=== PATIENT | male | born 1960 | race Caucasian/White ===

== ENCOUNTER 2016-07-22 12:37 | Outpatient (CLI) | payer BC | END 2016-07-22 12:38 | disposition home or self-care (01) | DX: R73.01 Impaired fasting glucose (principal); N18.2 Chronic kidney disease, stage 2 (mild); R35.1 Nocturia ==

== ENCOUNTER 2016-09-15 09:58 | Outpatient (CLI) | payer BC | END 2016-09-15 09:59 | disposition home or self-care (01) | DX: E78.5 Hyperlipidemia, unspecified (principal); R73.9 Hyperglycemia, unspecified ==

== ENCOUNTER 2017-01-05 10:33 | Outpatient (CLI) | payer BC ==
[2017-01-05 19:29] LABS: BASOPHILS # (AUTO) 0.1 10^3/uL (0.0-0.1); BASOPHILS % (AUTO) 0.4 %; EOSINOPHILS % (AUTO) 0.4 %; HCT - HEMATOCRIT 49.4 % (42.0-52.0); HGB - HEMOGLOBIN 16.4 g/dL (14.0-18.0); LYMPHOCYTES # (AUTO) 3.6 10^3/uL (1.5-3.5); LYMPHOCYTES % (AUTO) 31.1 %; MEAN CORPUSCULAR HEMOGLOBIN 29.9 pg (27.0-31.0); MEAN CORPUSCULAR HGB CONC 33.2 g/dL (32.0-36.0); MEAN CORPUSCULAR VOLUME 90.2 fL (80.0-94.0); MEAN PLATELET VOLUME 8.2 fL (7.4-11.4); MONOCYTES # (AUTO) 0.7 10^3/uL (0.0-1.0); MONOCYTES % (AUTO) 6.5 %; NEUTROPHILS % (AUTO) 61.6 %; NUCLEATED RED BLOOD CELLS AUTO 0.1 /100WBC; RED BLOOD COUNT 5.47 10^6/uL (4.70-6.10); RED CELL DISTRIBUTION WIDTH 13.2 % (12.0-15.0); UNCORRECTED WHITE BLOOD COUNT 11.4 x10^3/uL; WHITE BLOOD COUNT 11.4 x10^3/uL (4.8-10.8)
[2017-01-05 19:41] LABS: AMYLASE 70 U/L (28-100); BUN - BLOOD UREA NITROGEN 13 mg/dL (6-20); CALCIUM 9.1 mg/dL (8.5-10.3); CARBON DIOXIDE - CO2 24 mmol/L (21-32); CHLORIDE 106 mmol/L (101-111); CHOL/HDL RATIO 2.7 (<5.0); CHOLESTEROL 106 mg/dL; GFR - MDRD 78 (>89); GLUCOSE 98 mg/dL (70-100); HDL CHOLESTEROL 40 mg/dL; LIPASE 32 U/L (22-51); POTASSIUM 3.7 mmol/L (3.5-5.0); SODIUM 138 mmol/L (135-145)
[2017-01-05 19:42] LABS: LDL/HDL RATIO 1.3 (<3.6); TRIGLYCERIDES 65 mg/dL; VLDL CHOLESTEROL 13 mg/dL
[2017-01-05 20:31] LABS: HEMOGLOBIN A1C 0.67 g/dL
== END 2017-01-05 10:34 | disposition home or self-care (01) ==
LOC: LAB.F 10:33
PROVIDERS: ATTEND Physician Assistant
DX: R73.09 Other abnormal glucose (principal); E78.5 Hyperlipidemia, unspecified; R19.7 Diarrhea, unspecified
CPT/HCPCS: 36415; 80048; 80061; 82150; 83036; 83690; 85025

== ENCOUNTER 2017-07-27 07:11 | Outpatient (CLI) | payer OTHER ==
[2017-07-27 11:29] LABS: ALBUMIN 4.2 g/dL (3.2-5.5); ALBUMIN/GLOBULIN RATIO 1.4 (1.0-2.2); ALKALINE PHOSPHATASE 58 IU/L (42-121); ALT ALANINE AMINOTRANSFERASE 41 IU/L (10-60); AST ASPARTATE AMINOTRANSFERASE 32 IU/L (10-42); BILIRUBIN,TOTAL 1.2 mg/dL (0.2-1.0); BUN - BLOOD UREA NITROGEN 8 mg/dL (6-20); CALCIUM 8.7 mg/dL (8.5-10.3); CARBON DIOXIDE - CO2 27 mmol/L (21-32); CHLORIDE 105 mmol/L (101-111); CHOL/HDL RATIO 2.7 (<5.0); CHOLESTEROL 96 mg/dL; CREATININE 1.1 mg/dL (0.6-1.2); GFR - MDRD 69 (>89); GLUCOSE 114 mg/dL (70-100); HDL CHOLESTEROL 36 mg/dL; LDL CHOLESTEROL,CALCULATED 48 mg/dL; LDL/HDL RATIO 1.3 (<3.6); SODIUM 138 mmol/L (135-145); TOTAL PROTEIN 7.2 g/dL (6.7-8.2); VLDL CHOLESTEROL 12 mg/dL
[2017-07-27 11:43] LABS: HB2 TOTAL 17.7 g/dL; HEMOGLOBIN A1C 0.74 g/dL
== END 2017-07-27 07:12 | disposition home or self-care (01) ==
LOC: LAB.F 07:11
PROVIDERS: ATTEND Physician Assistant
DX: E78.5 Hyperlipidemia, unspecified (principal); R73.9 Hyperglycemia, unspecified
CPT/HCPCS: 36415; 80053; 80061; 83036; 83721

== ENCOUNTER 2017-09-10 08:00 | Outpatient (CLI) | payer OTHER ==
[2017-09-10 11:36] LABS: CALCIUM 8.8 mg/dL (8.5-10.3); CREATININE 0.9 mg/dL (0.6-1.2)
== END 2017-09-10 08:01 | disposition home or self-care (01) ==
LOC: LAB.F 08:00
PROVIDERS: ATTEND Physician Assistant
DX: R94.4 Abnormal results of kidney function studies (principal)
CPT/HCPCS: 36415; 80048

== ENCOUNTER 2017-10-28 11:45 | Outpatient (CLI) | payer OTHER ==
[2017-10-28 18:16] LABS: CALCIUM 8.9 mg/dL (8.5-10.3)
== END 2017-10-28 11:46 | disposition home or self-care (01) ==
LOC: LAB.F 11:45
PROVIDERS: ATTEND Physician Assistant
DX: R94.4 Abnormal results of kidney function studies (principal); E11.9 Type 2 diabetes mellitus without complications
CPT/HCPCS: 36415; 80048

== ENCOUNTER 2018-05-11 15:07 | Outpatient (CLI) | payer OTHER ==
--- NOTE | 2018-05-11 15:42 | XRAY Report ---
Reason: CHRONIC L KNEE PAIN, ACL REPAIR Procedure Date: 05/11/2018 Accession Number: [id number] / [id number] Procedure: XR - Knee 3 View LT CPT Code: FULL RESULT: EXAM: LEFT KNEE RADIOGRAPHY. EXAM DATE: 05/11/2018 03:14 PM. CLINICAL HISTORY: Chronic left knee pain, anterior cruciate ligament repair. COMPARISON: None. TECHNIQUE: 3 views. FINDINGS: Bones: No fractures or bone lesions. Joints: Joint spaces are generally preserved. No significant effusion. No subluxations. Soft Tissues: Normal. No soft tissue swelling. IMPRESSION: No fracture or dislocation. No significant posttraumatic degenerative changes. [facility]
== END 2018-05-11 15:08 | disposition home or self-care (01) ==
LOC: DI 15:07
PROVIDERS: ATTEND Family Medicine
DX: M25.562 Pain in left knee (principal)

== ENCOUNTER 2018-06-03 07:30 | Outpatient (CLI) | payer OTHER ==
--- NOTE | 2018-06-03 15:08 | MRI Report ---
Reason: PAIN IN LEFT KNEE Procedure Date: 06/03/2018 Accession Number: [id number] / [id number] Procedure: MRI - Knee LT W/O CPT Code: FULL RESULT: EXAM: LEFT KNEE MRI WITHOUT CONTRAST EXAM DATE: 06/03/2018 08:23 AM. CLINICAL HISTORY: Chronic left knee pain. COMPARISON: KNEE 3 VIEW LT 05/11/2018 3:14 PM. TECHNIQUE: Multiplanar, multisequence T1-weighted and fluid-sensitive sequences of the knee without contrast. Other: None. FINDINGS: Bones and articular cartilage: Small subcortical cyst and mild subcortical marrow edema at the posterior superior aspect of the medial femoral condyle. No acute fracture or bone lesion. Articular cartilage is within normal limits. No patellar subluxation. Medial Meniscus: Mild blunting at the free edge of the anterior horn which may be due to fraying. No discrete tear is seen. Lateral Meniscus: The lateral meniscus is intact. Cruciate Ligaments: The anterior and posterior cruciate ligaments are intact. Collateral Ligaments: There are 2, small, subcentimeter ossified fragments within the proximal aspect of the tibial collateral ligament due to previous old MCL injury. Otherwise, the medial collateral ligament is intact. The lateral collateral ligament complex structures are intact. Tendons: The quadriceps, patellar, semimembranosus, and popliteus tendons are unremarkable. Musculature: No edema or fatty atrophy. Other: No effusion. No popliteal cyst. No loose bodies. The medial and lateral retinacula are intact. Mild edema within the suprapatellar fat pad. IMPRESSION: 1. Mild blunting at the free edge of the anterior horn medial meniscus which may be due to fraying. No discrete tear is seen. 2. Staci-Stieda lesion from previous old MCL injury. The MCL is intact. 3. Edema within the suprapatellar fat pad which may be due to fat impingement. [facility] MUSCULOSKELETAL RADIOLOGY SECTION
== END 2018-06-03 07:31 | disposition home or self-care (01) ==
LOC: DI 07:30
PROVIDERS: ATTEND Family Medicine
DX: M76.42 Tibial collateral bursitis [Pellegrini-Stieda], left leg (principal)

== ENCOUNTER 2020-12-13 10:36 | Outpatient (CLI) | payer OTHER ==
[2020-12-13 15:14] LABS: CHOL/HDL RATIO 3.1 (<5.0); CHOLESTEROL 132 mg/dL; HDL CHOLESTEROL 42 mg/dL; LDL CHOLESTEROL,CALCULATED 78 mg/dL; LDL/HDL RATIO 1.9 (<3.6); TRIGLYCERIDES 58 mg/dL; VLDL CHOLESTEROL 12 mg/dL
== END 2020-12-13 10:37 | disposition home or self-care (01) ==
LOC: LAB.S 10:36
PROVIDERS: ATTEND Family Medicine
DX: E78.5 Hyperlipidemia, unspecified (principal)
CPT/HCPCS: 36415; 80061; 83721

== ENCOUNTER 2021-06-23 11:59 | Outpatient (CLI) | payer OTHER | END 2021-06-23 12:00 | disposition EMS.NT | LOC: EMS 11:59 | DX: R42 Dizziness and giddiness (principal); R11.2 Nausea with vomiting, unspecified ==

== ENCOUNTER 2021-10-27 08:08 | Outpatient (CLI) | payer OTHER | END 2021-10-27 08:09 | disposition short-term general hospital (02) | LOC: EMS 08:08 | DX: R10.31 Right lower quadrant pain (principal); R10.813 Right lower quadrant abdominal tenderness; R50.9 Fever, unspecified | CPT/HCPCS: A0425; A0429 ==

== ENCOUNTER 2021-11-28 16:52 | Outpatient (CLI) | payer OTHER ==
--- NOTE | 2021-11-28 17:10 | XRAY Report ---
PROCEDURE: Chest 2 View X-Ray INDICATIONS: DYSPNEA TECHNIQUE: 2 view(s) of the chest. COMPARISON: None. FINDINGS: Surgical changes and devices: None. Lungs and pleura: No pleural effusions or pneumothorax. Lungs are clear. Mediastinum: Mediastinal contours are normal. Heart size is normal. Bones and chest wall: No suspicious bony abnormalities. Soft tissues appear unremarkable. IMPRESSION: No acute cardiopulmonary pathology. Reviewed by: Renaldo Davis MD on 11/28/2021 5:08 PM PDT Approved by: Renaldo Davis MD on 11/28/2021 5:08 PM PDT Station ID: [id number]
== END 2021-11-28 16:53 | disposition home or self-care (01) ==
LOC: DI.S 16:52
PROVIDERS: ATTEND Physician Assistant
DX: R06.00 Dyspnea, unspecified (principal)

== ENCOUNTER 2022-09-30 11:00 | Outpatient (CLI) | payer OTHER ==
[2022-09-30] MEDS ORDERED: ALBUTEROL 1 PUFF INH STA (17:04)
== END 2022-09-30 11:01 | disposition home or self-care (01) ==
LOC: RT 11:00
PROVIDERS: ATTEND Nurse Practitioner Family
DX: R06.00 Dyspnea, unspecified (principal)
CPT/HCPCS: 94060; 94727; 94729